=== PATIENT | male | born 1990 | race Caucasian/White ===

== ENCOUNTER 2019-05-17 21:40 | Emergency (ER) | payer OTHER ==
[2019-05-17] MEDS ORDERED: HYDROCODONE/ACETAMINOPHEN 10-325 MG TABLET PO ONE (23:06)
--- NOTE | 2019-05-17 23:12 | ER Document Report ---
ED General - General Chief Complaint: Fall Stated Complaint: BACK AND HEAD INJURY Time Seen by Provider: 05/17/19 22:49 TRAVEL OUTSIDE OF THE [place] IN LAST 30 DAYS: No - HPI Notes: 20-year-old male with a remote history of TBI as stated, presents with fall and left hip right-hand head and neck pain back pain. Patient states he has intermittent dizziness because of his TBI. Was taking the trash out when he bent over, became dizzy and then fell down and onto the concrete driveway. Sustained injury to his right hand, left hip, lower back, abrasions about his left flank and struck his head. States he had 2 episodes after that where he just passed out. Moderate to severe headache. No use of anticoagulants. Points of midline cervical pain as well. Sharp, no associated numbness tingling. Moderate intensity, sudden onset. No other modifying factors, no other associated symptoms, no other provocative or palliative factors. - Related Data Allergies/Adverse Reactions: No Known Allergies Allergy (Unverified 07/14/16 09:59) Past Medical History - Social History Smoking Status: Unknown if Ever Smoked Drug Abuse: None Family History: None, Reviewed & Not Pertinent - Medical History Medical History: Other - Stated history of remote TBI Review of Systems - Review of Systems Notes: Review of systems as in the history of present illness, otherwise negative x 10 systems. Physical Exam - Vital signs Vitals: Temp Pulse Resp BP Pulse Ox 97.9 F 74 20 122/69 98 05/17/19 22:32 05/17/19 22:32 05/17/19 22:32 05/17/19 22:32 05/17/19 22:32 - Notes Notes: General: Well-developed, well-nourished HEENT: Normocephalic. Hematoma and abrasion noted to the left occipital parietal junction. No haq sign, no hemotympanum. Mucosa is moist. No intraoral trauma. Neck: Midline trachea, no JVD. Mild midline point vertebral tenderness and paracervical tenderness. No step-off or deformity. Chest: Normal excursion, no accessory muscle use. No gross trauma. Abdomen: Soft, nondistended. Nontender. No bruising. Pelvis: Stable. Left hip tenderness, range of motion mildly limited by pain. Back: Abrasion noted to left flank. Mild mid lumbar point tenderness and paralumbar tenderness on the left. No step-off or deformity. Vascular: Strong and symmetric upper and lower extremity pulses. Well-perfused extremities. Motor: Normal tone and power. Neurologic: Alert, nonfocal. Sensation symmetric and intact. Skin: No significant lacerations or purpura. Extremities: No cyanosis. No significant injury noted. Course - Re-evaluation Re-evalutation: 05/17/19 23:11 20-year-old male presents status post fall with multiple injuries as described. Concern is for his persistent headache and syncope and potential intracranial injury. We will proceed with CT of the brain and cervical spine. Plain films of the right hand, left hip, L-spine, oral analgesics and reassess with serial exams. 05/17/19 23:14 05/18/19 00:16 CT imaging of brain and cervical spine showed no acute abnormality. Plain films of the hand hip and L-spine are unremarkable. Discharged home with prescription for naproxen, close outpatient follow-up. - Vital Signs Vital signs: Temp Pulse Resp BP Pulse Ox 97.9 F 74 20 122/69 98 05/17/19 22:32 05/17/19 22:32 05/17/19 22:32 05/17/19 22:32 05/17/19 22:32 Discharge - Discharge Clinical Impression: Contusion Head injury Qualifiers: Encounter type: initial encounter Qualified Code(s): S09.90XA - Unspecified injury of head, initial encounter Cervical strain Qualifiers: Encounter type: initial encounter Qualified Code(s): S16.1XXA - Strain of muscle, fascia and tendon at neck level, initial encounter Disposition: HOME, SELF-CARE Instructions: Head Injury Precautions ([facility]), Neck Injury (Cervical Strain) ([facility]), Contusion ([facility]) Prescriptions: Cyclobenzaprine HCl [Flexeril 10 mg Tablet] 10 mg PO TIDP PRN #15 tab NS PRN Reason: Naproxen 500 mg PO Q12 PRN #12 tablet PRN Reason:
--- NOTE | 2019-05-17 23:49 | RADIOLOGY REPORT (SQ) ---
EXAM DESCRIPTION: XR HAND 3 OR MORE VIEWS COMPLETED DATE/TME: 05/17/2019 23:06 CLINICAL HISTORY: 28 years, Male, Trauma COMPARISON: None. NUMBER OF VIEWS: 3 TECHNIQUE: Three views RIGHT hand were obtained in AP, lateral and oblique projections LIMITATIONS: None. FINDINGS: There is no fracture or dislocation. The joint spaces are preserved. No soft tissue abnormalities are seen. IMPRESSION: No acute radiographic abnormality. copyright 2010 [employer]- All Rights Reserved
--- NOTE | 2019-05-17 23:49 | RADIOLOGY REPORT (SQ) ---
EXAM DESCRIPTION: XR LUMBAR SPINE ANTEROPOSTERIOR, LATERAL, AND OBLIQUES COMPLETED DATE/TME: 05/17/2019 23:06 CLINICAL HISTORY: 28 years, Male, Trauma COMPARISON: None. NUMBER OF VIEWS: TECHNIQUE: LIMITATIONS: None. FINDINGS: No fracture or dislocation. Vertebral bodies and disc spaces are normal in height. There is a mild lumbar levoscoliosis. This finding may be due to patient positioning. IMPRESSION: No fracture or dislocation. Questionable mild scoliosis. copyright 2010 [employer]- All Rights Reserved
--- NOTE | 2019-05-17 23:49 | RADIOLOGY REPORT (SQ) ---
EXAM DESCRIPTION: XR HIP 2 OR MORE VIEWS COMPLETED DATE/TME: 05/17/2019 23:06 CLINICAL HISTORY: 28 years, Male, Trauma COMPARISON: None. NUMBER OF VIEWS: 3 TECHNIQUE: Three views of the pelvis were obtained in single frontal view and lateral view of the LEFT and RIGHT hip. LIMITATIONS: None. FINDINGS: FINDINGS: There is no fracture or dislocation. The joint spaces are preserved. No soft tissue abnormalities are seen. Slight prominence of the femoral head neck junction is noted bilaterally, a finding which can be seen with femoral acetabular impingement in the correct clinical setting. IMPRESSION: No acute radiographic abnormality. copyright 2010 [facility]- All Rights Reserved
--- NOTE | 2019-05-17 23:55 | RADIOLOGY REPORT (SQ) ---
EXAM DESCRIPTION: CT CERVICAL SPINE WITHOUT IV CONTRAST, CT HEAD WITHOUT IV CONTRAST COMPLETED DATE/TME: 05/17/2019 23:06 CLINICAL HISTORY: 28 years, Male, Trauma COMPARISON: None. TECHNIQUE: CT brain and cervical spine without contrast. This exam was performed according to our departmental dose optimization program which includes use of automated exposure control, adjustment of the mA and/or kV according to patient size and/or use of iterative reconstruction technique. Images stored on PACS. All CT scanners at this facility use dose modulation, iterative reconstruction, and/or weight based dosing when appropriate to reduce radiation dose to as low as reasonably achievable (ALARA). [facility]: Dose Right [facility]: CareDose [facility]: Dose Right [facility]: Teradose 4D [facility]: Image Metrics LIMITATIONS: None. FINDINGS: Brain: The ventricles, sulci, and cisterns are symmetric and unremarkable. The terry-white matter differentiation is preserved. There is no mass effect, midline shift, intra- or extra-axial fluid collection/acute hemorrhage. The osseous structures are unremarkable. The paranasal sinuses and mastoid air cells are clear. Incidentally noted corpus callosum lipoma. Cavum septum pellucidum. IMPRESSION: 1. No acute intracranial abnormalities. Cervical spine: There is normal alignment of the cervical spine without fracture or subluxation. The facets are normal in alignment bilaterally. The posterior elements including the spinous processes are intact. Straightening of the cervical spine which may be secondary to positioning for the examination. Posterior osseous spurring results in mild neuroforaminal narrowing at the C4-5 and C5-6 vertebral levels. Central broad-based disk bulge at C5-6 extends into the central spinal canal by approximately 4 mm suggesting at least mild central spinal canal narrowing. Morphology and attenuation of the vertebral bodies and intervertebral disk spaces is otherwise within normal limits. The pre-and paravertebral soft tissues are within normal limits. IMPRESSION: 1. Straightening of the cervical spine which may be secondary to positioning for the examination versus spasm. 2. No fracture or acute subluxation. 3. Broad-based disk bulges C5-6 extending into the central spinal canal by approximately 4 mm suggesting at least mild central spinal canal narrowing. If the patient's symptoms persist, follow-up evaluation with MRI may be considered. TECHNICAL DOCUMENTATION: Quality ID # [id number]: Final reports with documentation of one or more dose reduction techniques (e.g., Automated exposure control, adjustment of the mA and/or kV according to patient size, use of iterative reconstruction technique) copyright 2010 [facility] [employer]- All Rights Reserved
[2019-05-18 00:47] VITALS: BP 132/66
== END 2019-05-18 00:47 | disposition home or self-care (01) ==
LOC: ER 21:40
DX: S09.90XA Unspecified injury of head, initial encounter (principal); S16.1XXA Strain of muscle, fascia and tendon at neck level, initial encounter; S30.811A Abrasion of abdominal wall, initial encounter; M25.551 Pain in right hip; M79.641 Pain in right hand; M54.9 Dorsalgia, unspecified; W19.XXXA Unspecified fall, initial encounter; Z87.820 Personal history of traumatic brain injury
CPT/HCPCS: 70450; 72110; 72125; 99284